=== PATIENT | female | born 1995 | race Hispanic/Latino ===

== ENCOUNTER 2019-03-01 | Emergency (ER) | payer OTHER | END 2019-03-01 01:20 | disposition home or self-care (01) | DRG 605 | DX: S50.812A Abrasion of left forearm, initial encounter (principal); S60.222A Contusion of left hand, initial encounter; V49.9XXA Car occupant (driver) (passenger) injured in unspecified traffic accident, initial encounter; W22.11XA Striking against or struck by driver side automobile airbag, initial encounter ==

== ENCOUNTER 2021-11-30 13:45 | Emergency (ER) | payer SELFPAY ==
[~2021-11-30] VITALS: Ht 162.6 cm; Wt 84.0 kg
[2021-11-30 14:00] VITALS: BP 105/70
[2021-11-30] MEDS ORDERED: MOTRIN800 MG PO (14:06)
[2021-11-30] MEDS ORDERED: AMOX/K CLAV875 M1 PO (14:06)
[2021-11-30 14:15] VITALS: BP 100/71
[2021-11-30 14:30] VITALS: BP 99/70
[2021-11-30 16:20] VITALS: BP 99/70
== END 2021-11-30 16:20 | disposition home or self-care (01) | DRG 605 ==
LOC: ED 13:45
DX: S50.872A Other superficial bite of left forearm, initial encounter (principal); S50.871A Other superficial bite of right forearm, initial encounter; S60.872A Other superficial bite of left wrist, initial encounter; W54.0XXA Bitten by dog, initial encounter; B96.89 Other specified bacterial agents as the cause of diseases classified elsewhere

== ENCOUNTER 2022-09-04 23:02 | Emergency (ER) | payer OTHER ==
[~2022-09-04] VITALS: Ht 167.6 cm; Wt 88.0 kg
[~2022-09-04 23:02] MED LIST: AMOX/K CLAV875 M1 PO; MOTRIN800 MG PO
[2022-09-04] MEDS ORDERED: BIKTARVY 50-2001 TAB PO (23:59)
[2022-09-05] VITALS: BP 115/80
[2022-09-06] MEDS ORDERED: BIKTARVY 50-2001 TAB PO ×2 (03:43→03:47)
== END 2022-09-05 00:09 | disposition home or self-care (01) | DRG 951 ==
LOC: ED 23:02
DX: Z77.21 Contact with and (suspected) exposure to potentially hazardous body fluids (principal)